=== PATIENT | female | born 1935 | race Caucasian/White ===

== ENCOUNTER 2017-07-09 04:39 | Emergency (ER) | payer MEDICARE, OTHER ==
[2015-01-25 13:18] VITALS: BMI 17.7
[~2017-07-09 04:39] MED LIST: ATROVENT 0.02%2.5 ML UPD; CALCIUM 600+D T1 TA1 PO; COZAAR50 MG PO; ELIQUIS5 MG PO; FISH OIL 1,0001 CA1; LIPITOR10 MG PO; MUCINEX600 MG PO; MULTAQ400 MG PO; OSTEO BI-FLEX1 EAC1 PO; PRESERVISION AR1 CAP PO; PULMICORT0.5 MG/21 UPD; PYRIDOXINE HCL100 MG PO; VIBRAMYCIN 100100 MG PO; VITAMIN B-121000 MCG PO; VITAMIN D3400 UNI1 PO; XOPENEX 0.0.63 MG/3 UPD; XOPENEX HFA15 GM INH
[2017-07-09 05:20] LABS: BASOPHILS 0.1 % (0-2); EOSINOPHILS 0.1 % (0-7); HEMATOCRIT 33.3 % (36.0-48.0); HEMOGLOBIN 10.8 g/dL (12-16); IMMATURE GRANULOCYTES 0.9 % (0-5); LYMPHOCYTES 7.8 % (15-50); MCH 30.4 pg (26.0-34.0); MCHC 32.4 g/dL (31.0-37.0); MCV 93.8 fL (80.0-100.0); MEAN PLATELET VOLUME 8.4 fL (7.4-10.4); MONOCYTES 7.7 % (2-11); NEUTROPHILS 83.4 % (40-80); PLATELET COUNT 365 10x3/uL (130-400); RBC 3.55 10x6/uL (4.00-5.40); RDW 14.1 % (11.5-14.5); WBC 9.8 10x3/uL (4.8-10.8)
[2017-07-09 05:38] LABS: ALBUMIN 2.6 g/dL (3.4-5.0); ALKALINE PHOSPHATASE 61 U/L (46-116); ALT (SGPT) 23 U/L (10-68); BILIRUBIN - TOTAL 0.31 mg/dL (0.2-1.3); CALC OSMOLALITY 279 mosm/kg (275-300); CALCIUM 9.1 mg/dL (8.5-10.1); CARBON DIOXIDE 30.8 mmol/L (21.0-32.0); CHLORIDE - SERUM 103 mmol/L (98-107); CREATININE - SERUM 0.8 mg/dL (0.6-1.3); GLUCOSE 117 mg/dL (74-106); INR 1.25 (0.85-1.17); POTASSIUM - SERUM 4.2 mmol/L (3.5-5.1); PROTEIN - SERUM 6.6 g/dL (6.4-8.2); PROTIME 15.2 SECONDS (11.6-15.0); SODIUM 138 mmol/L (136-145); UREA NITROGEN 22 mg/dL (7-18); eGFR NON AFRICAN AMERICAN 73 mL/min (90-120)
[2017-07-09 05:40] LABS: D-DIMER-QUANTITATIVE 0.5 ug/mLFEU (0.20-0.54)
[2017-07-09 05:50] LABS: CKMB 0.9 U/L (0.0-3.6); CREATINE KINASE 28 UL (21-215); MAGNESIUM - SERUM 2.2 mg/dL (1.8-2.4); PHOSPHOROUS 3.4 mg/dL (2.5-4.9); PRO BNP 331 pg/mL (0-450); TROPONIN-I < 0.017 ng/mL (0.000-0.060)
== END 2017-07-09 07:10 | disposition home or self-care (01) ==
LOC: D.ER 04:39
PROVIDERS: Family Medicine
DX: M79.1 Myalgia (principal); G89.29 Other chronic pain

== ENCOUNTER → 2017-07-14 15:39 | Outpatient (CLI) | payer MEDICARE, OTHER ==
[2015-01-25 13:18] VITALS: BMI 17.7
== END | disposition home or self-care (01) ==
LOC: D.MRI 07-13 14:00
DX: M54.16 Radiculopathy, lumbar region (principal)

== ENCOUNTER 2018-08-28 11:21 | Inpatient (IN) | payer MEDICARE, OTHER ==
[~2018-08-28] VITALS: Ht 167.6 cm; Wt 54.4 kg
[~2018-08-28 11:21] MED LIST changes: -FISH OIL 1,0001 CA1; +FISH OIL 1,0001 CA1 PO
[2018-08-28 12:02] LABS: BASOPHILS 0.2 % (0-2); EOSINOPHILS 0 % (0-7); HEMATOCRIT 30.2 % (36.0-48.0); IMMATURE GRANULOCYTES 0.2 % (0-5); LYMPHOCYTES 6.1 % (15-50); MCH 31.1 pg (26.0-34.0); MCHC 33.1 g/dL (31.0-37.0); MCV 93.8 fL (80.0-100.0); MEAN PLATELET VOLUME 8.8 fL (7.4-10.4); MONOCYTES 8.4 % (2-11); NEUTROPHILS 85.1 % (40-80); RBC 3.22 10x6/uL (4.00-5.40); RDW 15.5 % (11.5-14.5); WBC 5.9 10x3/uL (4.8-10.8)
[2018-08-28 12:08] LABS: PLATELET COUNT 164 10x3/uL (130-400)
[2018-08-28 12:21] LABS: APPEARANCE CLEAR (CLEAR); BILIRUBIN NEGATIVE (NEGATIVE); COLOR YELLOW (YELLOW); GLUCOSE NEGATIVE (NEGATIVE); KETONE SMALL mg/dL (NEGATIVE); NITRITE NEGATIVE (NEGATIVE); PROTEIN NEGATIVE (NEGATIVE); UROBILINOGEN NORMAL (NORMAL)
[2018-08-28 12:23] LABS: BACTERIA FEW /hpf (NONE SEEN); EPITHELIAL CELLS 0-5 /hpf (0-5); RED CELLS - URINE 0-5 /hpf (0-5); WHITE CELLS - URINE 0-5 /hpf (0-5)
[2018-08-28 12:34] LABS: ALBUMIN 2.9 g/dL (3.4-5.0); ALKALINE PHOSPHATASE 44 U/L (46-116); ALT (SGPT) 24 U/L (10-68); BILIRUBIN - TOTAL 0.45 mg/dL (0.2-1.3); CALC OSMOLALITY 278 mosm/kg (275-300); CALCIUM 7.9 mg/dL (8.5-10.1); CHLORIDE - SERUM 104 mmol/L (98-107); CREATININE - SERUM 0.6 mg/dL (0.6-1.3); GLUCOSE 97 mg/dL (74-106); POTASSIUM - SERUM 3.5 mmol/L (3.5-5.1); SODIUM 139 mmol/L (136-145); UREA NITROGEN 15 mg/dL (7-18); eGFR NON AFRICAN AMERICAN > 90 mL/min (90-120)
[2018-08-28 12:45] LABS: CKMB 0.7 U/L (0.0-3.6); CREATINE KINASE 48 UL (21-215); TROPONIN-I 0.016 ng/mL (0.000-0.060)
[2018-08-28 13:24] VITALS: BP 153/75
--- NOTE | 2018-08-28 14:01 | MORECARE ---
CASE MANAGEMENT DISCHARGE SUMMARY PATIENT: RYLEY COX UNIT: [id number] ADM DATE: 08/28/18 AGE: 82 : 35 SEX: F ROOM/BED: D.E14 AUTHOR: YAKELIN MANN PHYSICIAN: REFERRING PHYSICIAN: ART AGUERO MD DATE OF SERVICE: 08/28/18 Discharge Plan Patient Name: RYLEY COX Facility: [facility]:[place] : 1935 Planned Disposition: Home Anticipated Discharge Date: 08/30/18 Discharge Date: Expected LOS: 2 Initial Reviewer: [email or web address] Initial Review Date: 08/28/2018 Generated: 08/28/18 3:01 pm Patient Name: RYLEY COX Page [id number] at 1401 All edits/amendments must be made on the electronic document DICTATION DATE: 08/28/18 1401 DELIVERER PHARMACY: CHARISMA 08/28/18 1401 RPT#: [id number] DC DATE: STATUS: ADM IN [facility] [address] [place] [address] END OF REPORT
--- NOTE | 2018-08-28 14:02 | NUR ---
ROCEPHIN INFUSION COMPLETED @ 1402
--- NOTE | 2018-08-28 14:08 | MORECARE ---
CASE MANAGEMENT DISCHARGE SUMMARY PATIENT: RYLEY COX UNIT: [id number] ADM DATE: 08/28/18 AGE: 82 : 35 SEX: F ROOM/BED: D.E14 AUTHOR: YAKELIN MANN PHYSICIAN: REFERRING PHYSICIAN: ART AGUERO MD DATE OF SERVICE: 08/28/18 Discharge Plan Patient Name: RYLEY COX Facility: [facility]:[place] : 1935 Planned Disposition: Home Anticipated Discharge Date: 08/30/18 Discharge Date: Expected LOS: 2 Initial Reviewer: [email or web address] Initial Review Date: 08/28/2018 Generated: 08/28/18 3:07 pm DCPIA - Discharge Planning Initial Assessment Updated by [email or web address]: Tara Zaragoza on 08/28/18 2:05 pm * Is the patient Alert and Oriented? Yes * How many steps to enter\exit or inside your home? Ramp * PCP Dr. Alcantara * Pharmacy [facility] on [address] * Preadmission Environment Home Alone * ADLs Independent * Equipment Oxygen Power Chair or Electric Scooter Rolling Walker Wheelchair * Other Equipment [employer] - wears O2 @ HS has portable also but doesn't wear it. * List name and contact numbers for known caregivers / representatives who currently or will assist patient after discharge: Steve patel/norma in law - [phone] Yeyo patel / norma in law - [phone] * Verbal permission to speak to the caregivers and representatives has been obtained from the patient. Yes * Community resources currently utilized None * Additional services required to return to the preadmission environment? No * Can the patient safely return to the preadmission environment? Yes * Has this patient been hospitalized within the prior 30 days at any hospital? No Last DP export: 08/28/18 1:01 pm Patient Name: RYLEY COX Page 22885 at 1408 All edits/amendments must be made on the electronic document DICTATION DATE: 08/28/18 1407 SHOP LEAD: CHARISMA 08/28/187 RPT#: [id number] DC DATE: STATUS: ADM IN [facility] [address] [place] [address] END OF REPORT
--- NOTE | 2018-08-28 14:23 | MORECARE ---
CASE MANAGEMENT DISCHARGE SUMMARY PATIENT: RYLEY MCGUIRE UNIT: [id number] ADM DATE: 08/28/18 AGE: 82 : 35 SEX: F ROOM/BED: D.E14 AUTHOR: YAKELIN MANN PHYSICIAN: REFERRING PHYSICIAN: ART AGUERO MD DATE OF SERVICE: 08/28/18 Discharge Plan Patient Name: RYLEY MCGUIRE Facility: [facility]:[place] : 1935 Planned Disposition: Home Anticipated Discharge Date: 08/30/18 Discharge Date: Expected LOS: 2 Initial Reviewer: [email or web address] Initial Review Date: 08/28/2018 Generated: 08/28/18 3:22 pm DCP- Discharge Planning Updated by [email or web address]: Tara Zaragoza on 08/28/18 1:[address] Patient Name: RYLEY MCGUIRE Admission Status: ER Accout number: [id number] Admission Date: 08-28-2018 : 1935 Admission Diagnosis: Attending: ART AGUERO Current LOS: 1 Anticipated DC Date: 08-30-2018 Planned Disposition: Home Primary Insurance: MEDICARE A & B Discharge Planning Comments: CM met with patient to complete initial dc planning assessment. CM educated patient on the CM role and verbal consent given by patient to complete assessment. Patient lives at home alone independently. At discharge patient plans to return home alone and feels this is a safe discharge. CM discussed availability of home health, rehab services, and medical equipment. Patient denied known discharge needs at this time. CM will continue to follow and will assist as needed with dc plans/needs. Bow Tacker: Tara Zaragoza RN, CCM Appended by Tara Zaragoza on 08/28/2018 14:15 GRINDER CHIPPER: Patients [address]: [address] [place] [address] [place]. [address] DCPIA - Discharge Planning Initial Assessment Updated by [email or web address]: Tara Zaragoza on 08/28/18 2:05 pm * Is the patient Alert and Oriented? Yes * How many steps to enter\exit or inside your home? Ramp * PCP Dr. Alcantara * Pharmacy [facility] [address] * Preadmission Environment Home Alone * ADLs Independent * Equipment Oxygen Power Chair or Electric Scooter Rolling Walker Wheelchair * Other Equipment [employer] - wears O2 @ HS has portable also but doesn't wear it. * List name and contact numbers for known caregivers / representatives who currently or will assist patient after discharge: Hunterry Shayla - son/drt in law - [phone] Rafael and Laurie Mcguire - son / t in law - [phone] * Verbal permission to speak to the caregivers and representatives has been obtained from the patient. Yes * Community resources currently utilized None * Additional services required to return to the preadmission environment? No * Can the patient safely return to the preadmission environment? Yes * Has this patient been hospitalized within the prior 30 days at any hospital? No Last DP export: 08/28/18 1:08 pm Patient Name: RYLEY MCGUIRE Page 19525 at 1423 All edits/amendments must be made on the electronic document DICTATION DATE: 08/28/181421 WELL PULLER HEAD: CHARISMA 08/28/181421 RPT#: [id number] DC DATE: STATUS: ADM IN [facility] [address] [place] [address] END OF REPORT
[2018-08-28 14:26] LABS: % SATURATION 4 % (15-55); IRON 9 ug/dl (35-150); TOTAL IRON BIND CAPACITY 188 ug/dl (260-445); UNSAT IRON BIND CAPACITY 179 ug/dl (150-375)
[2018-08-28 14:46] LABS: FERRITIN 206 ng/mL (3-244); PRO BNP 1349 pg/mL (0-450)
[2018-08-28 15:58] VITALS: BP 123/58; BMI 19.4
[2018-08-28 18:35] VITALS: BP 127/58
--- NOTE | 2018-08-28 19:46 | NUR ---
PATIENT RESTING IN BED WITH EYES CLOSED AND NO S/S OF DISTRESS. BED IN LOWEST POSITION AND CALL LIGHT WITHIN REACH. WILL CONTINUE TO MONITOR.
--- NOTE | 2018-08-28 19:52 | NUR ---
PATIENT RESTING IN BED WITH NO S/S OF DISTRESS. REQUESTED EXTRA BLANKET AND WATER. PATIENT DENIES OTHER NEEDS AT THIS TIME. BED IN LOWEST POSITION AND CALL LIGHT WITHIN REACH. ENCOURAGED THE PATIENT TO CALL IF SHE HAS NEEDS. WILL CONTINUE TO MONITOR.
[2018-08-28 20:00] VITALS: BP 110/57
--- NOTE | 2018-08-28 21:31 | NUR ---
PATIENT RESTING IN BED WITH NO S/S OF DISTRESS. ADMINISTERED MEDS PER ORDERS. PATIENT DENIES OTHER NEEDS AT THIS TIME. BED IN LOWEST POSITION AND CALL LIGHT WITHIN REACH. ENCOURAGED THE PATIENT TO CALL IF SHE HAS NEEDS. WILL CONTINUE TO MONITOR.
[2018-08-29] VITALS: BP 115/49
[2018-08-29 04:00] VITALS: BP 117/62
--- NOTE | 2018-08-29 07:30 | NUR ---
PT RESTING IN BED, EYES OPEN. PT UP WITH STANDBY. PT ALERT AND ORIENTED. PT C/O HEADACHE. IV TO LEFT FOREARM, SL. SITE PATENT WITHOUT REDNESS OR SWELLING. FINE CRACKLES ASCULTATED IN RUL AND RML. RLL DIMINISHED. NO S/S OF ACUTE DISTRESS NOTED. PT DENIES ANYTHING FURTHER AT THIS TIME. CALL LIGHT IN REACH. WILL CONTINUE TO MONITOR.
[2018-08-29 07:33] LABS: BASOPHILS 0.2 % (0-2); EOSINOPHILS 0.2 % (0-7); HEMATOCRIT 32.8 % (36.0-48.0); HEMOGLOBIN 10.9 g/dL (12-16); IMMATURE GRANULOCYTES 0.2 % (0-5); LYMPHOCYTES 7.2 % (15-50); MCH 31.2 pg (26.0-34.0); MCHC 33.2 g/dL (31.0-37.0); MEAN PLATELET VOLUME 9.2 fL (7.4-10.4); MONOCYTES 13.3 % (2-11); NEUTROPHILS 78.9 % (40-80); PLATELET COUNT 177 10x3/uL (130-400); RBC 3.49 10x6/uL (4.00-5.40); RDW 15.8 % (11.5-14.5)
[2018-08-29 07:52] LABS: ANION GAP 12.1 mmol/L (8-16); CALCIUM 8.4 mg/dL (8.5-10.1); CARBON DIOXIDE 27.9 mmol/L (21.0-32.0)
[2018-08-29 07:56] LABS: CREATININE - SERUM 0.8 mg/dL (0.6-1.3)
[2018-08-29 08:35] VITALS: BP 117/60
--- NOTE | 2018-08-29 10:11 | NUR ---
ALERT AND ORIENTED X4. RESTING IN BED. AGREE WITH ETHANOL QUALITY LEADER ASSESSMENT. VITALS STABLE. UP WITH STAND BY ASSIST. CRISTHIAN RESUMES PLAN OF CARE AND SAFETY PRECAUTIONS. RECIEVES ELIAUGUSTINAIS. NO SCDs.
[2018-08-29 16:52] VITALS: BP 120/65
--- NOTE | 2018-08-29 18:32 | NUR ---
PT RESTING IN BED, EYES OPEN. NO C/O PAIN. NO S/S OF ACUTE DISTRESS NOTED. CALL LIGHT IN REACH. PT DENIES ANYTHING FURTHER AT THIS TIME. WILL CONTINUE TO MONITOR.
--- NOTE | 2018-08-29 19:30 | NUR ---
PATIENT RESTING IN BED AND DENIES NEEDS AT THIS TIME. NO S/S OF DISTRESS. BED IN LOWEST POSITION AND CALL LIGHT WITHIN REACH. ENCOURAGED THE PATIENT TO CALL IF SHE HAS NEEDS. WILL CONTINUE TO MONITOR.
[2018-08-29 20:00] VITALS: BP 107/59
[2018-08-30 01:00] VITALS: BP 120/64
[2018-08-30 05:00] VITALS: BP 113/59
[2018-08-30 07:22] LABS: BASOPHILS 0.2 % (0-2); EOSINOPHILS 0 % (0-7); HEMATOCRIT 30.8 % (36.0-48.0); HEMOGLOBIN 10.2 g/dL (12-16); IMMATURE GRANULOCYTES 0.3 % (0-5); LYMPHOCYTES 7.3 % (15-50); MCH 30.8 pg (26.0-34.0); MCHC 33.1 g/dL (31.0-37.0); MCV 93.1 fL (80.0-100.0); MEAN PLATELET VOLUME 9.6 fL (7.4-10.4); NEUTROPHILS 82.2 % (40-80); PLATELET COUNT 152 10x3/uL (130-400); RBC 3.31 10x6/uL (4.00-5.40); RDW 15.6 % (11.5-14.5); WBC 6.4 10x3/uL (4.8-10.8)
[2018-08-30 07:38] LABS: ALBUMIN 2.5 g/dL (3.4-5.0); ALKALINE PHOSPHATASE 38 U/L (46-116); ALT (SGPT) 23 U/L (10-68); BILIRUBIN - TOTAL 0.33 mg/dL (0.2-1.3); CALC OSMOLALITY 274 mosm/kg (275-300); CARBON DIOXIDE 28.7 mmol/L (21.0-32.0); CHLORIDE - SERUM 102 mmol/L (98-107); CREATININE - SERUM 0.7 mg/dL (0.6-1.3); GLUCOSE 95 mg/dL (74-106); POTASSIUM - SERUM 3.8 mmol/L (3.5-5.1); PROTEIN - SERUM 5.6 g/dL (6.4-8.2); SODIUM 138 mmol/L (136-145); UREA NITROGEN 11 mg/dL (7-18); eGFR NON AFRICAN AMERICAN 85 mL/min (90-120)
[2018-08-30 07:59] VITALS: BP 117/61
[2018-08-30 08:21] LABS: FOLATE (FOLIC ACID) - SERUM 11.7 ng/mL (>3.0)
[2018-08-30 11:50] VITALS: BP 110/55
[2018-08-30 16:54] VITALS: BP 105/56
--- NOTE | 2018-08-30 19:58 | NUR ---
ASSISTED THE PATIENT TO AND FROM THE RESTROOM AND TO THE SINK FOR HAND AND ORAL HYGIENE. PATIENT DENIES OTHER NEEDS AT THIS TIME. BED IN LOWEST POSITION AND CALL LIGHT WITHIN REACH. ENCOURAGED THE PATIENT TO CALL IF SHE HAS NEEDS. WILL CONTINUE TO MONITOR.
[2018-08-30 20:00] VITALS: BP 98/47
[2018-08-31] VITALS: BP 117/57
[2018-08-31 04:00] VITALS: BP 104/52
[2018-08-31 07:17] LABS: BASOPHILS 0.2 % (0-2); EOSINOPHILS 0.2 % (0-7); HEMATOCRIT 30.2 % (36.0-48.0); IMMATURE GRANULOCYTES 0.2 % (0-5); LYMPHOCYTES 7.2 % (15-50); MCH 30.9 pg (26.0-34.0); MCHC 33.1 g/dL (31.0-37.0); MCV 93.2 fL (80.0-100.0); MEAN PLATELET VOLUME 9.6 fL (7.4-10.4); MONOCYTES 16.1 % (2-11); NEUTROPHILS 76.1 % (40-80); PLATELET COUNT 172 10x3/uL (130-400); RBC 3.24 10x6/uL (4.00-5.40); RDW 15.8 % (11.5-14.5); WBC 5.7 10x3/uL (4.8-10.8)
[2018-08-31 07:25] LABS: ALBUMIN 2.3 g/dL (3.4-5.0); ALKALINE PHOSPHATASE 45 U/L (46-116); ALT (SGPT) 20 U/L (10-68); BILIRUBIN - TOTAL 0.35 mg/dL (0.2-1.3); CALC OSMOLALITY 276 mosm/kg (275-300); CALCIUM 8.3 mg/dL (8.5-10.1); CARBON DIOXIDE 25.9 mmol/L (21.0-32.0); CHLORIDE - SERUM 104 mmol/L (98-107); CREATININE - SERUM 0.7 mg/dL (0.6-1.3); GLUCOSE 93 mg/dL (74-106); POTASSIUM - SERUM 3.7 mmol/L (3.5-5.1); PROTEIN - SERUM 5.6 g/dL (6.4-8.2); SODIUM 139 mmol/L (136-145); UREA NITROGEN 11 mg/dL (7-18); eGFR NON AFRICAN AMERICAN 85 mL/min (90-120)
[2018-08-31 09:27] VITALS: BP 107/55
--- NOTE | 2018-08-31 09:50 | NUR ---
AM MED GIVEN AT THIS TIME. PT UP TO CHAIR, PT IS A LITTLE SOB ON 2L NC. INSTRUCTED PT TO TAKE SLOW DEEP BREATHS. PT A/O X4, LT FA IV SL. PT DENIES ANY NEEDS AT THIS TIME. CALL LIGHT IN REACH, NAD NOTED, WILL CONTINUE TO MONITOR.
--- NOTE | 2018-08-31 10:48 | NUR ---
PT TO CT AT THIS TIME.
[2018-08-31 12:03] VITALS: BP 111/52
--- NOTE | 2018-08-31 17:35 | NUR ---
IVPB IRON HUNG AT THIS TIME. ALSO HELPED PT TO BATHROOM AND UP TO CHAIR. PT DENIES ANY NEEDS AT THIS TIME. CALL LIGHT IN REACH, NAD NOTED.
[2018-08-31 17:43] VITALS: BP 129/79
--- NOTE | 2018-08-31 19:19 | NUR ---
CALLED PHARMACY AND SPOKE WITH TYLER, INFORMED HIM THAT I NEED MOTRIN FOR PT.
[2018-08-31 20:46] VITALS: BP 114/64
--- NOTE | 2018-08-31 20:55 | NUR ---
RESUMING PATIENT CARE. PT IS ALERT LAYING IN BED WITH NO C/O VOICED AT THIS TIME. NO S/S OF ACUTE DISTRESS NOTED. BED IN LOW POSITION WITH CALL LIGHT IN REACH. WILL CONTINUE TO MONITOR PT AND FOLLOW PLAN OF CARE.
[2018-09-01] VITALS (8 sets, daily range): BP systolic 101–131; BP diastolic 50–73; Ht 167.6 cm; Wt 54.4 kg
--- NOTE | 2018-09-01 03:16 | NUR ---
I AGREE WITH RETURNED GOODS REPAIRER ASSESSMENT THIS SHIFT.
[2018-09-01 07:15] LABS: ALBUMIN 2.3 g/dL (3.4-5.0); ANION GAP 8.5 mmol/L (8-16); BILIRUBIN - TOTAL 0.46 mg/dL (0.2-1.3); CARBON DIOXIDE 31.4 mmol/L (21.0-32.0); CREATININE - SERUM 0.8 mg/dL (0.6-1.3); POTASSIUM - SERUM 3.9 mmol/L (3.5-5.1); PROTEIN - SERUM 5.6 g/dL (6.4-8.2)
--- NOTE | 2018-09-01 07:20 | NUR ---
ASSESSMENT COMPLETE. SL TO L UPPER ARM. O2 2.5L NC IN USE. SOB ON EXERTION. DENIES ANY NEEDS AT THIS TIME.
[2018-09-01 07:35] LABS: BASOPHILS 0.2 % (0-2); EOSINOPHILS 0.2 % (0-7); HEMATOCRIT 29.2 % (36.0-48.0); HEMOGLOBIN 9.7 g/dL (12-16); IMMATURE GRANULOCYTES 0.4 % (0-5); LYMPHOCYTES 9.1 % (15-50); MCH 30.6 pg (26.0-34.0); MCHC 33.2 g/dL (31.0-37.0); MCV 92.1 fL (80.0-100.0); MEAN PLATELET VOLUME 9.6 fL (7.4-10.4); MONOCYTES 21.2 % (2-11); NEUTROPHILS 68.9 % (40-80); PLATELET COUNT 176 10x3/uL (130-400); RBC 3.17 10x6/uL (4.00-5.40); RDW 15.5 % (11.5-14.5); WBC 5.1 10x3/uL (4.8-10.8)
--- NOTE | 2018-09-01 08:39 | MORECARE ---
CASE MANAGEMENT DISCHARGE SUMMARY PATIENT: RYLEY MCGUIRE UNIT: [id number] ADM DATE: 08/28/18 AGE: 82 : 35 SEX: F ROOM/BED: D.1207 AUTHOR: MACKENZIE,DOC PHYSICIAN: REFERRING PHYSICIAN: ART AGUERO MD DATE OF SERVICE: 09/01/18 Discharge Plan Patient Name: RYLEY MCGUIRE Facility: [facility]:[place] : 1935 Planned Disposition: Home Anticipated Discharge Date: 08/30/18 Discharge Date: Expected LOS: 2 Initial Reviewer: [email or web address] Initial Review Date: 08/28/2018 Generated: 09/01/18 9:39 am DCP- Discharge Planning Updated by [email or web address]: Tara Zaragoza on 08/28/18 1:[address] Patient Name: RYLEY MCGUIRE Admission Status: ER Accout number: [id number] Admission Date: 08-28-2018 : 1935 Admission Diagnosis: Attending: ART AGUERO Current LOS: 1 Anticipated DC Date: 08-30-2018 Planned Disposition: Home Primary Insurance: MEDICARE A & B Discharge Planning Comments: CM met with patient to complete initial dc planning assessment. CM educated patient on the CM role and verbal consent given by patient to complete assessment. Patient lives at home alone independently. At discharge patient plans to return home alone and feels this is a safe discharge. CM discussed availability of home health, rehab services, and medical equipment. Patient denied known discharge needs at this time. CM will continue to follow and will assist as needed with dc plans/needs. Government Auditor: Tara Zaragoza RN, CCM Appended by Tara Zaragoza on 08/28/2018 14:15 FORESTRY ENGINEER: Patients physical [address]: [address] [place] [address] [place]. [address] DCPIA - Discharge Planning Initial Assessment Updated by [email or web address]: Tara Zaragoza on 08/28/18 2:05 pm * Is the patient Alert and Oriented? Yes * How many steps to enter\exit or inside your home? Ramp * PCP Dr. Alcantara * Pharmacy [facility] [address] * Preadmission Environment Home Alone * ADLs Independent * Equipment Oxygen Power Chair or Electric Scooter Rolling Walker Wheelchair * Other Equipment [employer] - wears O2 @ HS has portable also but doesn't wear it. * List name and contact numbers for known caregivers / representatives who currently or will assist patient after discharge: Donny bernard Gunjan Shayla - son/drt in law - [phone] Rafael and Lauriealon Mcguire - son / t in law - [phone] * Verbal permission to speak to the caregivers and representatives has been obtained from the patient. Yes * Community resources currently utilized None * Additional services required to return to the preadmission environment? No * Can the patient safely return to the preadmission environment? Yes * Has this patient been hospitalized within the prior 30 days at any hospital? No Last DP export: 08/28/18 1:23 pm Patient Name: RYLEY MCGUIRE Page 46425 at 0839 All edits/amendments must be made on the electronic document DICTATION DATE: 09/01/18838 CHEF DE CUISINE: CHARISMA 09/01/18838 RPT#: [id number] DC DATE: STATUS: ADM IN [facility] [address] [place] [address] END OF REPORT
--- NOTE | 2018-09-01 12:31 | NUR ---
SITTING UP IN CHAIR. DENIES ANY NEEDS AT THIS TIME.
--- NOTE | 2018-09-01 14:30 | NUR ---
SPOKE WITH KIERSTEN IN IR. IR WILL NOT BE ABLE TO DO THORACENTESIS TODAY. INSTRUCTED TO ASK DR JARVIS. SPOKE WITH DR JARVIS ABOUT IR NOT BEING ABLE TO DO THORACENTESIS. OK FOR PATIENT TO EAT AND DRINK.
--- NOTE | 2018-09-01 16:20 | NUR ---
PATIENT REPORTS SEEING BRIGHT RED BLOOD WHEN WIPING AFTER BOWEL MOVEMENT. DR CARLTON PAGED THROUGH ANSWERING SERVICE.
--- NOTE | 2018-09-01 18:10 | NUR ---
DR. JARVIS HERE. CONSENT SIGNED FOR THORACENTISIS AT BEDSIDE UNDER LOCAL ONLY. US TECH HERE AND ALSO RT. O2 SAT MONITOR ON. PT DRAPED WITH STERILE DRAPE. DR. JARVIS USED LIDOCAINE FOR LOCAL ANESTHESIA. 450 CC OF CLEAR TEA COLOR DRAINED FROM POSTERIOR CHEST. PT JEFF WELL. STAT PORTABLE CHEST XRAY ORDERED. 3 TUBES OF FLUID COLLECTION FOR LAB.
--- NOTE | 2018-09-01 19:00 | NUR ---
THE PAIENT WAS LYING IN BED AND TALKING TO HER FAMILY WHEN STAFF ENTERED HER ROOM. BED IS IN THE LOW POSITION WITH SIDERAILS X2 AND CALL LIGHT WITHIN REACH. THE PATIENT WAS EDUCATED ON THE USE OF A CALL LIGHT AND DEMONSTRATES UNDERSTANDING VIA TEACHABCK METHOD. THE PATIENT APPEARS COMFORTABLE WITH NO QUESTIONS OR CONCERNS AT THIS TIME.
[2018-09-01 19:47] LABS: PROTEIN - BODY FLUID 2.5 G/DL
--- NOTE | 2018-09-02 03:24 | NUR ---
THE PATIENT APPEARS TO BE SLEEPING COMFORTABLY. BED IN TH ELOW POSITION WITH SIDERAILS X2 AND CALL LIGHT WITHIN REACH.
[2018-09-02 04:30] VITALS: BP 106/59
--- NOTE | 2018-09-02 07:28 | NUR ---
PT SITTING UP IN BED. CALL LIGHT IN REACH. BED IN LOW. PT RECIEVING BREATHING TX AT THIS TIME. DENIES NEEDS OR PAIN. WILL CONTINUE TO MONITOR.
[2018-09-02 07:39] VITALS: BP 118/52
[2018-09-02 08:11] LABS: ALBUMIN 2.2 g/dL (3.4-5.0); ANION GAP 13.2 mmol/L (8-16); BILIRUBIN - TOTAL 0.5 mg/dL (0.2-1.3); CARBON DIOXIDE 25.8 mmol/L (21.0-32.0); CREATININE - SERUM 0.8 mg/dL (0.6-1.3); PROTEIN - SERUM 5.8 g/dL (6.4-8.2)
[2018-09-02 08:49] LABS: BASOPHILS 0.2 % (0-2); EOSINOPHILS 0.3 % (0-7); HEMATOCRIT 29.6 % (36.0-48.0); HEMOGLOBIN 9.8 g/dL (12-16); IMMATURE GRANULOCYTES 0.2 % (0-5); LYMPHOCYTES 9.9 % (15-50); MCH 30.6 pg (26.0-34.0); MCHC 33.1 g/dL (31.0-37.0); MCV 92.5 fL (80.0-100.0); MEAN PLATELET VOLUME 9.4 fL (7.4-10.4); MONOCYTES 19.4 % (2-11); PLATELET COUNT 173 10x3/uL (130-400); RDW 15.5 % (11.5-14.5); WBC 5.9 10x3/uL (4.8-10.8)
--- NOTE | 2018-09-02 10:20 | NUR ---
CALLED PHARMACY AND SPOKE WITH SETH ABOUT ONE TIME DOSE OF LASIX NOT BEING IN PYXIS. SETH STATED SHE WOULD BRING IT RIGHT DOWN. WILL GIVE DOSE SOON MED IS HERE. WILL CONTINUE TO MONITOR.
--- NOTE | 2018-09-02 10:30 | NUR ---
DR JARVIS GAVE VERBAL ORDER TO KEEP PATIENT NPO STARTING NOW, FOR POSSIBLE BRONC TODAY. NURSE ANNIE NOTIFIED
[2018-09-02 11:22] VITALS: BP 119/64
--- NOTE | 2018-09-02 13:36 | NUR ---
Nurtition follow-up: Diet: Regular with po intake 75-100% of meals Pt is now NPO for possible Broch today Labs reviewed Wt: 119# RDN following.
--- NOTE | 2018-09-02 13:49 | NUR ---
PT LYING IN BED. CALL LIGHT IN REACH. DENIES NEEDS. NPO FOR PROCEDURE. WILL CONTINUE TO MONITOR.
--- NOTE | 2018-09-02 14:00 | NUR ---
CALLED PHARMACY [facility] ANSWERED AND TOLD HER THAT THIS PT ROCEPHINS NOT ON UNIT. SHE SAID SHE WOULD BRING IT.
[2018-09-02 15:21] VITALS: BP 124/57
--- NOTE | 2018-09-02 15:28 | NUR ---
RESPIRATORY CAME AND RECIEVED PT FOR BRONCHOSCOPY BY BED. CONSENTS SIGNED. NO QUESTIONS ASKED.
--- NOTE | 2018-09-02 16:56 | NUR ---
PT IN ROOM. PT DENIES NEEDS OR PAIN. BED IN LOW. SIDE RAILS X2. RESP EVEN AND UNLABORED. RECIEVED REPORT FROM PROCEDURE AND DR. JARVIS. WILL CONTINUE TO MONITOR.
--- NOTE | 2018-09-02 19:20 | NUR ---
PT RESTING IN BED. PT ALLOWED TO EAT AT 1930 WILL HEAT UP DINNER TRAY. PT HAS NO S/S OF DISTRESS. AAO AND DENIES ANY NEEDS. NAME AND DATE PLACED ON BOARD. BED LOW AND CALL LIGHT IN REACH. PT WILL CALL FOR ASSIST WHEN NEEDED. WILL CPOC
[2018-09-02 20:00] VITALS: BP 117/71
[2018-09-02 20:07] LABS: EOS BF 12 %; MACROPHAGES BF 62 %; MESOTHELIALS BF 2 %; NEUT - BF 14 %
[2018-09-02 21:24] LABS: EOS BF 3 %; MACROPHAGES BF 28 %; MESOTHELIALS BF 2 %; NEUT - BF 27 %
[2018-09-03 01:30] VITALS: BP 148/63
--- NOTE | 2018-09-03 03:53 | NUR ---
ASSISTED PATIENT TO BATHROOM USING ONE PERSON ASSIST. PATIENT HAD CLEAR YELLOW URINE. BACK TO BED AND REPOSITIONED FOR COMFORT. CALL LIGHT IN REACH.
[2018-09-03 04:30] VITALS: BP 119/60
[2018-09-03 06:43] LABS: BASOPHILS 0.1 % (0-2); EOSINOPHILS 0.1 % (0-7); IMMATURE GRANULOCYTES 0.4 % (0-5); LYMPHOCYTES 4.9 % (15-50); MCH 30.5 pg (26.0-34.0); MCHC 33.3 g/dL (31.0-37.0); MCV 91.5 fL (80.0-100.0); MEAN PLATELET VOLUME 9.6 fL (7.4-10.4); MONOCYTES 14.9 % (2-11); NEUTROPHILS 79.6 % (40-80); PLATELET COUNT 205 10x3/uL (130-400); RBC 3.28 10x6/uL (4.00-5.40); RDW 15.1 % (11.5-14.5)
[2018-09-03 06:44] LABS: WBC 10.7 10x3/uL (4.8-10.8)
[2018-09-03 07:09] LABS: ALBUMIN 2.1 g/dL (3.4-5.0); ALKALINE PHOSPHATASE 50 U/L (46-116); BILIRUBIN - TOTAL 0.59 mg/dL (0.2-1.3); CALCIUM 8.2 mg/dL (8.5-10.1); CARBON DIOXIDE 29.4 mmol/L (21.0-32.0); CHLORIDE - SERUM 100 mmol/L (98-107); CREATININE - SERUM 0.7 mg/dL (0.6-1.3); POTASSIUM - SERUM 3.7 mmol/L (3.5-5.1); SODIUM 136 mmol/L (136-145); UREA NITROGEN 9 mg/dL (7-18); eGFR NON AFRICAN AMERICAN 85 mL/min (90-120)
[2018-09-03 07:11] LABS: ALT (SGPT) 38 U/L (10-68); CALC OSMOLALITY 273 mosm/kg (275-300); GLUCOSE 147 mg/dL (74-106)
[2018-09-03 07:24] VITALS: BP 127/61
--- NOTE | 2018-09-03 08:42 | NUR ---
PT LYING IN BED, STATED STILL VERY DROWSY AND INQUIRED ON HOW LONG IT TAKES FOR ANESTHESIA TO WEAR OFF. ANSWERED ALL OF PT'S QUESTIONS AND SET HER UP FOR BREAKFAST. NO S/S OF DISTRESS, BED IN LOW POSITION, CL IN REACH. CONTINUE WITH PLAN OF CARE
--- NOTE | 2018-09-03 08:44 | NUR ---
SITTING UP IN RECLINER. DENIES ANY NEEDS AT THIS TIME.
[2018-09-03 11:42] VITALS: BP 118/62
[2018-09-03 15:20] VITALS: BP 110/56
[2018-09-03 18:07] LABS: ACID FAST SMEAR Negative (()); AFB SPECIMEN PROCESSING Not Indicated (())
--- NOTE | 2018-09-03 19:22 | NUR ---
ASSISTED PATIENT TO AND FROM RESTROOM. PATIENT DENIES NEEDS AT THIS TIME. BED IN LOWEST POSITION AND CALL LIGHT WITHIN REACH. ENCOURAGED THE PATIENT TO CALL IF SHE HAS NEEDS. BED IN LOWEST POSITION AND CALL LIGHT WITHIN REACH. WILL CONTINUE TO MONITOR.
[2018-09-03 20:00] VITALS: BP 129/64
[2018-09-04 00:52] VITALS: BP 111/61
[2018-09-04 04:00] VITALS: BP 115/47
--- NOTE | 2018-09-04 07:15 | NUR ---
ALEKSEY ADMITTED FOR PNEUMONIA. RESTING IN BED WITH NO NEEDS VOICED AT THIS TIME, DYSPNEA REPORTED WITH EXERTION, 02 2L NC. CL IN REACH
[2018-09-04 07:27] LABS: BASOPHILS 0 % (0-2); EOSINOPHILS 0 % (0-7); HEMATOCRIT 32.3 % (36.0-48.0); HEMOGLOBIN 10.8 g/dL (12-16); IMMATURE GRANULOCYTES 0.3 % (0-5); LYMPHOCYTES 3.1 % (15-50); MCH 30.6 pg (26.0-34.0); MCHC 33.4 g/dL (31.0-37.0); MCV 91.5 fL (80.0-100.0); MEAN PLATELET VOLUME 9.3 fL (7.4-10.4); MONOCYTES 2.5 % (2-11); NEUTROPHILS 94.1 % (40-80); RBC 3.53 10x6/uL (4.00-5.40)
[2018-09-04 07:36] LABS: ANION GAP 14.1 mmol/L (8-16); CALCIUM 8.4 mg/dL (8.5-10.1); CARBON DIOXIDE 28.7 mmol/L (21.0-32.0); POTASSIUM - SERUM 3.8 mmol/L (3.5-5.1)
[2018-09-04 07:39] LABS: CREATININE - SERUM 0.9 mg/dL (0.6-1.3); PLATELET COUNT 248 10x3/uL (130-400)
[2018-09-04 08:00] VITALS: BP 133/69
[2018-09-04 18:06] LABS: ACID FAST SMEAR Negative (()); AFB SPECIMEN PROCESSING Concentration (())
[2018-09-04 18:06] LABS: ACID FAST SMEAR Negative (()); AFB SPECIMEN PROCESSING Concentration (())
[2018-09-04 18:51] VITALS: BP 122/53
--- NOTE | 2018-09-04 19:40 | NUR ---
PATIENT SITTING UP IN THE CHAIR WITH NO S/S OF DISTRESS. PATIENT DENIES NEEDS AT THIS TIME. BED IN LOWEST POSITION AND CALL LIGHT WITHIN REACH. ENCOURAGED THE PATIENT TO CALL IF SHE HAS NEEDS. WILL CONTINUE TO MONITOR.
[2018-09-04 20:01] VITALS: BP 109/57
--- NOTE | 2018-09-04 20:12 | NUR ---
PATIENT SITTING UP IN CHAIR. ADMINISTERED MEDS PER ORDERS. PATIENT DENIES NEEDS AT THIS TIME. WILL CONTINUE TO MONITOR.
--- NOTE | 2018-09-04 21:35 | NUR ---
ASSISTED PATIENT TO AND FROM RESTROOM AND TO THE SINK FOR ORAL AND HAND HYGIENE. PATIENT REQUESTED MOTRIN FOR HEAD AND NECK PAIN. PATIENT DENIES OTHER NEEDS AT THIS TIME. PATIENT REQUESTED TO SLEEP IN CHAIR. ENCOURAGED THE PATIENT TO CALL IF SHE HAS FURTHER NEEDS. WILL CONTINUE TO MONITOR.
[2018-09-05 01:02] VITALS: BP 117/55
[2018-09-05 04:00] VITALS: BP 120/58
[2018-09-05 07:54] VITALS: BP 118/59
[2018-09-05 08:03] LABS: BASOPHILS 0.1 % (0-2); EOSINOPHILS 0 % (0-7); HEMATOCRIT 31.2 % (36.0-48.0); HEMOGLOBIN 10.4 g/dL (12-16); IMMATURE GRANULOCYTES 0.4 % (0-5); LYMPHOCYTES 2.8 % (15-50); MCH 30.7 pg (26.0-34.0); MCHC 33.3 g/dL (31.0-37.0); MEAN PLATELET VOLUME 9.6 fL (7.4-10.4); MONOCYTES 3.8 % (2-11); NEUTROPHILS 92.9 % (40-80); RBC 3.39 10x6/uL (4.00-5.40); RDW 15.1 % (11.5-14.5)
[2018-09-05 08:13] LABS: PLATELET COUNT 363 10x3/uL (130-400); WBC 15.7 10x3/uL (4.8-10.8)
[2018-09-05 08:19] LABS: ANION GAP 9.6 mmol/L (8-16); CALCIUM 8.1 mg/dL (8.5-10.1); CARBON DIOXIDE 33.8 mmol/L (21.0-32.0); CREATININE - SERUM 1.1 mg/dL (0.6-1.3); MAGNESIUM - SERUM 2.2 mg/dL (1.8-2.4); POTASSIUM - SERUM 3.4 mmol/L (3.5-5.1)
--- NOTE | 2018-09-05 09:13 | NUR ---
AM ROUNDS COMPLETED. INTRODUCED MYSELF TO PT PRIMARY RN FOR TODAYS SHIFT. PT IS A&O SITTING UP IN BED RESTING QUIETLY. SHIFT ASSESSMENT COMPLETED. PT STATES SHE IS FEELING BETTER OVERALL BUT STILL SOB UPON EXERTION AND FEELING WEAK. MORNING MEDICATIONS GIVEN AND PT SWALLOWED WITHOUT ANY DIFFICULTIES. PT WANTING A SHOWER TODAY I DISCUSSED WITH VIDAL LOYA AND WE WILL ASSIST HER. PT VOICED THANKS. NO FURTHER NEEDS AT THIS TIME. CL IN REACH, BED IN LOWEST, SIDE RAILS X2 AND ANTONETTE PAD IN PLACE. WILL CTM.
--- NOTE | 2018-09-05 10:03 | NUR ---
PT UP TO BEDSIDE COMMODE URINATING WITH ANY ISSUES NOTED. PT STATES SHE IS FEELING ALRIGHT. DENIES ANY CURRENT PAIN OR NEEDS. CL IN REACH, WILL CTM.
--- NOTE | 2018-09-05 10:54 | CN ---
PATIENT NAME:RYLEY MCGUIRE MEDICAL RECORD: [id number] : 35 LOCATION:D.M3 D.1207 ADMIT DATE: 08/28/18 ACCOUNT: [id number] CONSULTING PHYSICIAN: SESAR COTA MD REFERRING PHYSICIAN: ART AGUERO MD DATE OF CONSULTATION: 09/04/2018 DIAGNOSES: 1. Pneumonia. 2. Status post thoracentesis for pleural effusion. 3. History of atrial fibrillation. 4. Shortness of breath and dyspnea on exertion. HISTORY: Mrs. Mcguire presents with shortness of breath and dyspnea on exertion. She was found to be with a bronchitis that progressed to a pneumonia as well as a pleural effusion. She has undergone thoracentesis. We were asked to comment from a cardiac standpoint. She is on Multaq for the atrial fibrillation as well as Eliquis. She has maintained sinus rhythm. Echocardiogram reveals normal ejection fraction, normal valvular structures, and no significant pulmonary hypertension. She has had no signs or symptoms of ischemic heart disease and has no ST-T abnormalities on EKG. PHYSICAL EXAMINATION: GENERAL APPEARANCE: Well-nourished, well-developed, appears stated age. Level of distress, comfortable. PSYCHIATRIC: Mental status, alert, normal affect. Orientation, oriented to time, place and person. EYES: Lids and conjunctiva, noninjected. No discharge, no pallor. ENT: Lips, teeth, gums, normal dentition. Oropharynx, no cyanosis, no pallor. NECK: Carotid arteries, bilateral normal upstroke, no bruits, no thrills. JUGULAR VEINS: No jugular venous pressure or distention. CERVICAL LYMPH NODES: Nontender, nonenlarged. THYROID: Not enlarged. Nontender. No nodules. LUNGS: Respiratory effort, unlabored. CHEST: Normal curvature. No thoracic deformity. No chest wall tenderness. Percussion, resonant. Auscultation, clear. No wheezes, no rales, no rhonchi. CARDIOVASCULAR: Precordial exam, nondisplaced. No heaves or pericardial thrills. Rate and rhythm, regular. Heart sounds, normal S1, normal S2. No S3, no gallop, no rub. Systolic murmur, not heard. Diastolic murmur, not heard. EXTREMITIES: No cyanosis, no edema. Peripheral pulses, full and equal in all extremities, except as noted. No bruits appreciated. ABDOMEN: Soft, nondistended. Normal aorta. No bruit. Nontender. No masses. Liver, nontender, no hepatomegaly. Spleen, nontender, no splenomegaly. MUSCULOSKELETAL: No joint tenderness. No joint swelling. No erythema. NEUROLOGICAL: Normal gait, normal strength, normal tone. SKIN: Warm and dry. OVERALL IMPRESSION: Symptomatology is noncardiac. She has maintained sinus rhythm. She does not have congestive heart failure. Normal ejection fraction. Normal valvular structures. No other cardiac workup or treatment is necessary. TRANSINT:[id number] Voice Confirmation ID: [id number] DOCUMENT ID: [id number] CONSULT REPORT [id number] RYLEY MCGUIRE, SESAR LI at 1054 CC: [id number] DICTATION DATE: 09/04/18 1255 IC ENGINEER: 09/04/18 1353 ADM IN [facility] [address] [place] [id number]
--- NOTE | 2018-09-05 10:54 | EC ---
PATIENT:RYLEY COX DATE OF SERVICE: 08/28/18 SEX: F MEDICAL RECORD: [id number] DATE OF : [birth year] LOCATION:D.M3 D.120 AGE OF PATIENT: 82 ADMISSION DATE: 08/28/18 REFERRING PHYSICIAN: INTERPRETING PHYSICIAN: SESAR ISAACS MD ECHOCARDIOGRAM REPORT ECHO CHARGES 4 ECHO COMPLETE Date: 09/03/18 CLINICAL DIAGNOSIS: CHF ECHOCARDIOGRAPHIC MEASUREMENTS (adult normal given) AC root (d.<3.7cm) 3.1 cm LV Septum d (<1.2 cm> 0.7 cm Valve Excursion 1.3 cm LV Septum (systole) 1.0 cm Left Atria (s.<4.0cm> 3.1 cm LVPW d(<1.2cm) 1.0 cm RV (d.<2.3cm) 2.4 cm LVPW (sytole) 1.4 cm LV diastole(<5.6CM) 4.3 cm MV E-F(>70mm/sec) cm LV systole 3.1 cm LVOT Diameter 1.5 cm MV exc.(>10mm) cm Est.ejection fraction (50-75%) % DOPPLER: LVIT cm/sec A 83 cm/sec E 96 cm/sec LA cm/sec RVSP 32.7 mmHg LVOT 126 cm/sec AOP1/2T m/s Asc. Ao 188 cm/sec RVOT 53 cm/sec RA cm/sec PA 74 cm/sec AV Gradient Peak 14.2 mmHg AV Mean 7.2 mmHg AV Area 1.1 cm MV Gradient Peak 4.5 mmHg MV Mean 2.2 mmHg MV Area cm COMMENTS: Manganese Heater: Fadi CAMPMACIE SYEDA Bar Supervisor: 1 Dr. Isaacs TAPE# PACS Pericardial Effusion N DATE OF SERVICE: 09/03/2018 FINDINGS: 1. Left ventricular chamber size is within normal limits. Left ventricular systolic function is normal. Overall ejection fraction is estimated at 60%. 2. Left atrium is within normal limits. Right atrium and right ventricular chamber sizes are mildly dilated. 3. Valvular structures have normal structure and motion. 4. Doppler interrogation reveals mild tricuspid regurgitation. No other valvular insufficiency or stenosis. Pulmonary systolic pressure is normal, ECHOCARDIOGRAM REPORT [id number] RYLEY COX estimated at 33 mmHg. 5. No evidence of pericardial effusion or left ventricular thrombus. TRANSINT:[id number] Voice Confirmation ID: [id number] DOCUMENT ID: [id number] SESAR ISAACS MD at 1054 CC: [id number] DICTATION DATE: 09/04/18 1145 SPONGE BUFFER: 09/04/18 1203 ADM IN [place] [id number] [place] [address]
[2018-09-05 11:17] VITALS: BP 107/53
--- NOTE | 2018-09-05 11:21 | NUR ---
Rehab Prescreening Consult recieved and the chart has been reviewed. She is a good ARU candidate, but has not had therapy yet. Rehab will visit with the patient and inform her of the required therapy and the rehab program. Karen Hester RN Clinical Liaison, Rehab
[2018-09-05] MEDS ORDERED: OMNICEF300 MG PO (13:51)
[2018-09-05] MEDS ORDERED: ZITHROMAX500 MG PO (13:51)
[2018-09-05] MEDS ORDERED: STERAPRED DS 1010 MG PO (13:52)
[2018-09-05] MEDS ORDERED: MIRALAX17 GM PO (13:52)
[2018-09-05] MEDS ORDERED: PROTONIX40 MG PO (13:52)
[2018-09-05] MEDS ORDERED: FLUTICASONE PRO16 GM NASAL (13:53)
--- NOTE | 2018-09-05 13:54 | NUR ---
PT WANTING TO GET INTO SHOWER. SHALINI DRAKE AT BEDSIDE ASSISTED AND WRAPPED HER PIV SITE. PT GETTING IN NOW AND HAS ALL SUPPLIES NEEDED. DENIES ANY ASSISTANCE. SHOWER CHAIR IN USE. PT HAS ALSO BEEN ACCEPTED TO INPATIENT REHAB AND IS HAPPY TO HEAR THIS. WILL BEGIN DISCHARGE WORKUP. NO CURRENT NEEDS.
--- NOTE | 2018-09-05 14:12 | NUR ---
Nutrition Follow Up: Chart reviewed Diet: Regular PO Intake: 69% meal avg BM: 09/05/18 Labs reviewed Meds noted including Lasix, Solu Medrol Rec continue current diet. RD following.
[2018-09-05 14:16] LABS: FUNGUS STAIN Final report (())
[2018-09-05 14:16] LABS: FUNGUS STAIN Final report (())
--- NOTE | 2018-09-05 14:36 | MORECARE ---
CASE MANAGEMENT DISCHARGE SUMMARY PATIENT: RYLEY COX UNIT: [id number] ADM DATE: 08/28/18 AGE: 82 : 35 SEX: F ROOM/BED: D.1207 AUTHOR: MACKENZIE,DOC PHYSICIAN: REFERRING PHYSICIAN: ART AGUERO MD DATE OF SERVICE: 09/05/18 Discharge Plan Patient Name: RYLEY COX Facility: [facility]:[place] : 1935 Planned Disposition: Home Anticipated Discharge Date: 08/30/18 Discharge Date: Expected LOS: 2 Initial Reviewer: [email or web address] Initial Review Date: 08/28/2018 Generated: 09/05/18 3:36 pm Comments DCP- Discharge Planning Updated by [email or web address]: Kaya Bradley on 09/05/18 1:[address] CM informed by Karen in rehab that patient is in agreement with discharge to IRF and has been accepted. CM met with patient about discharge planning. Patient verbalized satisfaction with discharge plan. CM explained and served DC IMM. Cm will continue to follow and assist as needed with discharge planning / needs. DCP- Discharge Planning Updated by [email or web address]: Tara Zaragoza on 08/28/18 12:[address] Patient Name: RYLEY COX Admission Status: ER Accout number: [id number] Admission Date: 08-28-2018 : 1935 Admission Diagnosis: Attending: ART AGUERO Current LOS: 1 Anticipated DC Date: 08-30-2018 Planned Disposition: Home Primary Insurance: MEDICARE A & B Discharge Planning Comments: CM met with patient to complete initial dc planning assessment. CM educated patient on the CM role and verbal consent given by patient to complete assessment. Patient lives at home alone independently. At discharge patient plans to return home alone and feels this is a safe discharge. CM discussed availability of home health, rehab services, and medical equipment. Patient denied known discharge needs at this time. CM will continue to follow and will assist as needed with dc plans/needs. Manager Target: Tara Zaragoza RN, CCM Appended by Tara Zaragoza on 08/28/2018 14:15 CROSSCUTTER: Patients physical address: [address] [place] [address]. [address] DCPIA - Discharge Planning Initial Assessment Updated by [email or web address]: Tara Zaragoza on 08/28/18 2:05 pm * Is the patient Alert and Oriented? Yes * How many steps to enter\exit or inside your home? Ramp * PCP Dr. Alcantara * [facility] [address] * Preadmission Environment Home Alone * ADLs Independent * Equipment Oxygen Power Chair or Electric Scooter Rolling Walker Wheelchair * Other Equipment [employer] - wears O2 @ HS has portable also but doesn't wear it. * List name and contact numbers for known caregivers / representatives who currently or will assist patient after discharge: Steve patel/norma in law - [phone] Rafael and Laurie patel / norma in law - [phone] * Verbal permission to speak to the caregivers and representatives has been obtained from the patient. Yes * Community resources currently utilized None * Additional services required to return to the preadmission environment? No * Can the patient safely return to the preadmission environment? Yes * Has this patient been hospitalized within the prior 30 days at any hospital? No Coverage Notice Reviewer: [id number] Nelson Bradley Notice Issued Date-Time: 09/05/2018 14:32 Notice Type: IM Discharge Notice Notice Delivered To: Patient Relationship to Patient: Self Casting Tester Name: Delivery Method: HAND - Hand Delivered Breann Days: Prior Verbal Notification: Recipient Understood Notice: Yes Recipient Signature: Yes Med Rec Note Co-signed by Attending: Coverage Notice Comment: Last DP export: 09/01/18 6:39 am Patient Name: RYLEY COX Page [id number] at 1436 All edits/amendments must be made on the electronic document DICTATION DATE: 09/05/18 1435 QUALITY CONTROL TECHNICIAN: CHARISMA 09/05/18 1435 RPT#: [id number] DC DATE: STATUS: ADM IN [facility] [address] [place] [address] END OF REPORT
--- NOTE | 2018-09-05 18:03 | NUR ---
D/C L.UPPER ARM PIV WITH CATHETER TIP FULLY INTACT. DISCHARGE TEACHING PROVIDED AND PAPERS SIGNED. PT VERBALIZED UNDERSTANDING AND DENIES ANY QUESTIONS OR CONCERNS. CALLED REPORT TO ANITA IN REHAB. PT WILL BE GOING TO ROOM 1114. NO FURTHER NEEDS. WILL COLLECT ALL BELONGINGS AND TRANSFER PT THERE.
--- NOTE | 2018-09-05 19:03 | MORECARE ---
CASE MANAGEMENT DISCHARGE SUMMARY PATIENT: RYLEY MCGUIRE UNIT: [id number] ADM DATE: 08/28/18 AGE: 82 : 35 SEX: F ROOM/BED: D.1207 AUTHOR: MACKENZIE,DOC PHYSICIAN: REFERRING PHYSICIAN: ART AGUERO MD DATE OF SERVICE: 09/05/18 Discharge Plan Patient Name: RYLEY MCGUIRE Facility: [facility]:[place] : 1935 Planned Disposition: Home Anticipated Discharge Date: 08/30/18 Discharge Date: 09/05/2018 Expected LOS: 2 Initial Reviewer: [id number] Initial Review Date: 08/28/2018 Generated: 09/05/18 8:03 pm Comments DCP- Discharge Planning Updated by [id number]: Kaya Bradley on 09/05/18 1:[address] CM informed by Karen in rehab that patient is in agreement with discharge to IRF and has been accepted. CM met with patient about discharge planning. Patient verbalized satisfaction with discharge plan. CM explained and served DC IMM. Cm will continue to follow and assist as needed with discharge planning / needs. DCP- Discharge Planning Updated by [id number]: Tara Zaragoza on 08/28/18 12:[address] Patient Name: RYLEY MCGUIRE Admission Status: ER Accout number: [id number] Admission Date: 08-28-2018 : 1935 Admission Diagnosis: Attending: ART AGUERO Current LOS: 1 Anticipated DC Date: 08-30-2018 Planned Disposition: Home Primary Insurance: MEDICARE A & B Discharge Planning Comments: CM met with patient to complete initial dc planning assessment. CM educated patient on the CM role and verbal consent given by patient to complete assessment. Patient lives at home alone independently. At discharge patient plans to return home alone and feels this is a safe discharge. CM discussed availability of home health, rehab services, and medical equipment. Patient denied known discharge needs at this time. CM will continue to follow and will assist as needed with dc plans/needs. Central Office Maintainer: Tara Zaragoza RN, CCM Appended by Tara Zaragoza on 08/28/2018 14:15 PUMPER HELPER: Patients physical address: [address] [place] [address]. [address] DCPIA - Discharge Planning Initial Assessment Updated by [id number]: Tara Zaragoza on 08/28/18 2:05 pm * Is the patient Alert and Oriented? Yes * How many steps to enter\exit or inside your home? Ramp * PCP Dr. Alcantara * [facility] [address] * Preadmission Environment Home Alone * ADLs Independent * Equipment Oxygen Power Chair or Electric Scooter Rolling Walker Wheelchair * Other Equipment [employer] - wears O2 @ HS has portable also but doesn't wear it. * List name and contact numbers for known caregivers / representatives who currently or will assist patient after discharge: Steve Mcguire - jorge/norma in law - [phone] Rafael and Laurie patel / norma in law - [phone] * Verbal permission to speak to the caregivers and representatives has been obtained from the patient. Yes * Community resources currently utilized None * Additional services required to return to the preadmission environment? No * Can the patient safely return to the preadmission environment? Yes * Has this patient been hospitalized within the prior 30 days at any hospital? No Coverage Notice Reviewer: [id number] Nelson Bradley Notice Issued Date-Time: 09/05/2018 14:32 Notice Type: IM Discharge Notice Notice Delivered To: Patient Relationship to Patient: Self Adjunct Instructor Of Women'S Studies Name: Delivery Method: HAND - Hand Delivered Breann Days: Prior Verbal Notification: Recipient Understood Notice: Yes Recipient Signature: Yes Med Rec Note Co-signed by Attending: Coverage Notice Comment: Last DP export: 09/05/18 1:36 p Patient Name: RYLEY MCGUIRE Page [id number] at 1903 All edits/amendments must be made on the electronic document DICTATION DATE: 09/05/181902 RADIO MESSAGE ROUTER: CHARISMA 09/05/18 190 RPT#: [id number] DC DATE:09/05/18 STATUS: DIS IN [facility] [address] [place] [address] END OF REPORT
[2018-09-13 14:17] LABS: FUNGUS CULTURE RESULT 1 Candida albicans (()); FUNGUS MYCOLOGY CULTURE Preliminary report (())
[2018-09-13 14:17] LABS: FUNGUS CULTURE RESULT 1 Candida albicans (()); FUNGUS MYCOLOGY CULTURE Preliminary report (())
== END 2018-09-05 18:22 | DRG 177 ==
LOC: D.ER 11:21 → D.M3 12:55 → D.EDHOLD 12:55 → D.M3 14:46
PROVIDERS: Emergency Medicine; Family Medicine; Internal Medicine Pulmonary Disease; ADMIT Internal Medicine Nephrology; ATTEND Internal Medicine Nephrology
PROC: 0W993ZZ Drainage of Right Pleural Cavity, Percutaneous Approach (ICD-10-PCS; principal; 2018-09-01)
PROC: 0B9J7ZX Drainage of Left Lower Lung Lobe, Via Natural or Artificial Opening, Diagnostic (ICD-10-PCS; 2018-09-02)
PROC: 0B9D7ZX Drainage of Right Middle Lung Lobe, Via Natural or Artificial Opening, Diagnostic (ICD-10-PCS; 2018-09-02)
DX: J15.6 Pneumonia due to other Gram-negative bacteria (principal); J96.21 Acute and chronic respiratory failure with hypoxia; J47.1 Bronchiectasis with (acute) exacerbation; J47.0 Bronchiectasis with acute lower respiratory infection; D50.9 Iron deficiency anemia, unspecified; E78.5 Hyperlipidemia, unspecified; I48.91 Unspecified atrial fibrillation; K59.00 Constipation, unspecified; D64.9 Anemia, unspecified; I11.0 Hypertensive heart disease with heart failure; I50.9 Heart failure, unspecified

== ENCOUNTER 2018-09-05 16:17 | Inpatient (IN) | payer MEDICARE, OTHER ==
[~2018-09-05] VITALS: Ht 167.6 cm; Wt 54.4 kg
[~2018-09-05 16:17] MED LIST changes: +FLUTICASONE PRO16 GM NASAL; +MIRALAX17 GM PO; +OMNICEF300 MG PO; +PROTONIX40 MG PO; +STERAPRED DS 1010 MG PO; +ZITHROMAX500 MG PO
[2018-09-05 20:00] VITALS: BP 103/55
[2018-09-05 20:09] VITALS: BP 103/55; BMI 19.4
[2018-09-06 08:00] VITALS: BP 131/66
[2018-09-06 09:48] VITALS: Ht 167.6 cm; Wt 54.4 kg
[2018-09-06 19:57] VITALS: BP 119/59
[2018-09-07 07:31] LABS: BASOPHILS 0.1 % (0-2); EOSINOPHILS 0.4 % (0-7); HEMATOCRIT 30.4 % (36.0-48.0); HEMOGLOBIN 10.1 g/dL (12-16); IMMATURE GRANULOCYTES 1.2 % (0-5); LYMPHOCYTES 12.2 % (15-50); MCH 30.4 pg (26.0-34.0); MCHC 33.2 g/dL (31.0-37.0); MCV 91.6 fL (80.0-100.0); MEAN PLATELET VOLUME 9.3 fL (7.4-10.4); MONOCYTES 17.9 % (2-11); NEUTROPHILS 68.2 % (40-80); PLATELET COUNT 416 10x3/uL (130-400); RBC 3.32 10x6/uL (4.00-5.40); RDW 15.1 % (11.5-14.5)
[2018-09-07 07:44] LABS: ANION GAP 7.9 mmol/L (8-16); CALCIUM 8.2 mg/dL (8.5-10.1); CARBON DIOXIDE 33.5 mmol/L (21.0-32.0); CREATININE - SERUM 0.8 mg/dL (0.6-1.3); POTASSIUM - SERUM 3.4 mmol/L (3.5-5.1)
[2018-09-07 08:00] VITALS: BP 162/73
[2018-09-07 08:02] LABS: WBC 8.4 10x3/uL (4.8-10.8)
[2018-09-07 21:19] VITALS: BP 138/65
[2018-09-08 08:14] VITALS: BP 141/72
[2018-09-08 20:57] VITALS: BP 122/62
[2018-09-09 06:17] LABS: BASOPHILS 0.1 % (0-2); EOSINOPHILS 1.7 % (0-7); HEMOGLOBIN 10.3 g/dL (12-16); IMMATURE GRANULOCYTES 2.6 % (0-5); LYMPHOCYTES 12.7 % (15-50); MCH 30.7 pg (26.0-34.0); MCHC 33.2 g/dL (31.0-37.0); MCV 92.5 fL (80.0-100.0); MEAN PLATELET VOLUME 9.3 fL (7.4-10.4); MONOCYTES 10.9 % (2-11); PLATELET COUNT 469 10x3/uL (130-400); RBC 3.35 10x6/uL (4.00-5.40); RDW 15.1 % (11.5-14.5); WBC 8.9 10x3/uL (4.8-10.8)
[2018-09-09 06:26] LABS: ANION GAP 8.9 mmol/L (8-16); CALCIUM 8.7 mg/dL (8.5-10.1); CARBON DIOXIDE 31.3 mmol/L (21.0-32.0); CREATININE - SERUM 0.8 mg/dL (0.6-1.3)
[2018-09-09 06:27] LABS: POTASSIUM - SERUM 4.2 mmol/L (3.5-5.1)
[2018-09-09 07:45] VITALS: BP 143/69
--- NOTE | 2018-09-09 17:01 | RHP ---
PATIENT: RYLEY COX MEDICAL RECORD: [id number] ACCOUNT: [id number] LOCATION:[facility] : [birth year] ADMISSION DATE: 09/05/18 REHABILITATION HISTORY AND PHYSICAL EXAMINATION POST ADMISSION PHYSICIAN EXAMINATION DATE OF ADMISSION: 09/05/2018 ADMITTING DIAGNOSIS: Chronic obstructive pulmonary disease induced myopathy. HISTORY OF PRESENT ILLNESS: The patient is an 82-year-old female patient admitted secondary to COPD induced myopathy. She presented to the Emergency Room on 08/28/2018 by EMS with increasing generalized weakness, shortness of breath, dyspnea on exertion, productive cough, headache, body aches, fevers and chills. She apparently had been feeling unwell since the evening prior to this, she was very weak. She was short of breath more than normal, chest congestion and fever. She has got a history of hypertension, hyperlipidemia, COPD, AFib. She had diminished breath sounds bilaterally. Her temperature was 103.3. She was hypoxic with sats of 88%. X-ray showed bilateral patchy airspace opacities concerned for bibasilar pneumonia. She has got a history of chronic bronchiectasis with exertion. 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 She was treated with ibuprofen, GI and DVT prophylaxis, Zithromax, Rocephin updrafts and telemetry. She improved with this treatment. She had a bronchoscopy on 09/02/2018 with bronchoalveolar lavage. Bronchoscopy specimens were sent to the lab for cultures, AFB, Gram stain and cytology. She had an elevated BNP also. She was continued on antibiotics. She was continued on updrafts, steroids, diuresis, incentive spirometry. Overall impression was symptomatically that any of her chest pain or other complaints were noncardiac. She has maintained a sinus rhythm. She does not have congestive heart failure at this time. She is very fatigued and has limited flexion and extension of her lower extremities. She has got proximal muscle strength that is decreased. She is mod-to-max assist for ADLs and mod-to-max assist for stand and bed to chair. She is highly motivated and has good intent to regain her strength to return back home at her prior level of functioning or better. She wears O2 at night at 2 liters. She was very active, driving exercising and taking dance lessons prior to this. Barriers to her discharge is that she lives alone. She does not have any family there nearby. She has increasing O2 needs. She is a fall risk and definitely has dyspnea on exertion. COMORBIDITIES: In this patient include [id number]-yz-ctmiehb respiratory failure, COPD, pneumonia, hypertension, hyperlipidemia, atrial fib, constipation, chronic hypoxic respiratory failure, pulmonary edema, hypokalemia, anemia, bilateral pleural effusions, did get dizzy, back pain, weakness, fatigue and dyspnea on exertion. PAST MEDICAL HISTORY: Significant for atrial fib, COPD, hypertension and hyperlipidemia. PAST SURGICAL HISTORY: None. ALLERGIES: CODEINE AND ACETAMINOPHEN. CURRENT MEDICATIONS: Include Atrovent updrafts. She is on Pulmicort 0.5 mg b.i.d., vitamin B6 100 mg daily, prednisone 10 mg daily, polyethylene glycol 17 grams in 8 ounces of water daily, Protonix 40 mg daily, losartan 50 mg daily, HISTORY AND PHYSICAL [id number] COX,RYLEY Mucinex D 1 tab b.i.d., glucosamine 1000 mg daily, B12 1000 mcg daily, vitamin D 1000 units daily, atorvastatin 10 mg daily, Xopenex updrafts as needed. She is on Flonase nasal spray daily, omega 3 one cap b.i.d., Multaq 400 mg b.i.d., Omnicef 300 mg b.i.d., Os-Hi with D b.i.d., she is on Eliquis 5 mg b.i.d. HABITS: No current alcohol or tobacco use. FAMILY HISTORY: Noncontributory. SOCIAL HISTORY: The patient hopes to return back home and get back to her prior level of functioning. REVIEW OF SYSTEMS: GENERAL: Does complain of weakness and fatigue. HEENT: Does complain of cold, cough, or congestion. CARDIOVASCULAR: Denies chest pain. PHYSICAL EXAMINATION: VITAL SIGNS: Stable, afebrile. GENERAL: A thin female, in no acute distress, alert upon exam. HEENT: Normocephalic and atraumatic. Mucosa moist. NECK: Supple. No lymphadenopathy. LUNGS: Clear in upper pina. HEART: Regular rate and rhythm at this time. ABDOMEN: Benign. EXTREMITIES: No clubbing, cyanosis or edema. NEUROLOGIC: She does have noted weakness. LABORATORY DATA: Her white count is 15.7, H&H of 10 and 31 and platelet count was 363. Her admit chemistry shows sodium 139, potassium 3.4, BUN and creatinine of 19 and 1.1 and blood sugar is noted to be 137. Her UA upon admission to the hospital did show trace leukocyte esterase, but otherwise was normal. ASSESSMENT: This is an 82-year-old female patient admitted to rehab with a working diagnosis of chronic obstructive pulmonary disease induced myopathy. The patient has potential to make improvement. We instituted the following multidisciplinary therapies including, but not limited to physical, occupational, respiratory, speech, nutritional services, prosthetics and orthotics. Given her complex medical condition and risks for more complications, rehabilitation services cannot be provided at a low level of care such as skilled nurse facility. PLAN: 1. Admit to [facility] for intensive inpatient therapy to include the following disciplines: A. Physical therapy to improve gait, all transfer skills and bed mobility to a modified independent level. B. Occupational therapy to a modified independent level. C. Case management to assist with discharge planning and placement options. D. Nutrition to assist with nutritional needs. E. Rehabilitation nursing to assist in monitoring the patient's underlying medical conditions and to assist with any type of bowel or bladder management. 2. The patient's current medication and medical care will be continued. 3. The patient will be placed on standard fall precautions. HISTORY AND PHYSICAL [id number] RYLEY COX 4. The patient's estimated length of stay is approximately 7-10 days. 5. Discuss patient during care team staff meeting this week. TRANSINT:[id number] Voice Confirmation ID: [id number] DOCUMENT ID: [id number] REMBERTO notes whether there has been none or any medical/functional change since admission: - No change since prescreen. REMBERTO attests patient continues to be appropriate for IRF: - Continues to be appropriate. KWABENA ARTEAGA MD at 1701 CC: [id number] DICTATION DATE: 09/06/18 0836 FURNACE AND WASH EQUIPMENT OPERATOR: 09/06/18 0945 ADM IN [facility] [address] [place] [id number]
[2018-09-09 19:30] VITALS: BP 127/64
[2018-09-10 14:19] VITALS: BP 109/61
[2018-09-10 19:29] VITALS: BP 126/66
[2018-09-11 08:12] VITALS: BP 137/68
[2018-09-11 19:25] VITALS: BP 127/59
[2018-09-12 07:19] LABS: HEMATOCRIT 31.3 % (36.0-48.0); HEMOGLOBIN 10.1 g/dL (12-16); MCH 30.5 pg (26.0-34.0); MCHC 32.3 g/dL (31.0-37.0); MCV 94.6 fL (80.0-100.0); MEAN PLATELET VOLUME 8.7 fL (7.4-10.4); PLATELET COUNT 434 10x3/uL (130-400); RBC 3.31 10x6/uL (4.00-5.40); RDW 15.4 % (11.5-14.5); WBC 8.3 10x3/uL (4.8-10.8)
[2018-09-12 07:40] LABS: ANION GAP 7.3 mmol/L (8-16); CALCIUM 8.4 mg/dL (8.5-10.1); CARBON DIOXIDE 33.9 mmol/L (21.0-32.0); CREATININE - SERUM 0.9 mg/dL (0.6-1.3); POTASSIUM - SERUM 4.2 mmol/L (3.5-5.1)
[2018-09-12 08:16] VITALS: BP 143/63
[2018-09-12 09:50] LABS: EOSINOPHILS 1 % (0-7); LYMPHOCYTES 10 % (15-50); MONOCYTES 12 % (2-11); NEUTROPHILS 74 % (40-80)
[2018-09-12 09:51] LABS: PLATELET ESTIMATE NORMAL; PLATELET MORPHOLOGY PLT CLUMPS PRESENT
[2018-09-12 19:40] VITALS: BP 117/57
[2018-09-13 08:16] VITALS: BP 130/68
[2018-09-13] MEDS ORDERED: MIRALAX17 GM PO (13:28)
[2018-09-13] MEDS ORDERED: PREDNISONE10 MG PO (13:29)
== END 2018-09-13 13:56 | disposition home or self-care (01) | DRG 91 ==
LOC: D.REHAB 16:17
PROVIDERS: ADMIT Emergency Medicine; ATTEND Emergency Medicine
DX: G72.89 Other specified myopathies (principal); J18.9 Pneumonia, unspecified organism; J96.21 Acute and chronic respiratory failure with hypoxia; J90 Pleural effusion, not elsewhere classified; J81.1 Chronic pulmonary edema; J44.1 Chronic obstructive pulmonary disease with (acute) exacerbation; E78.5 Hyperlipidemia, unspecified; I10 Essential (primary) hypertension; I48.91 Unspecified atrial fibrillation; D64.9 Anemia, unspecified; K59.00 Constipation, unspecified; E87.6 Hypokalemia; R53.1 Weakness; R53.83 Other fatigue

== ENCOUNTER 2019-06-08 15:07 | Emergency (ER) | payer MEDICARE, OTHER ==
[~2019-06-08] VITALS: Ht 167.6 cm; Wt 54.5 kg
[~2019-06-08 15:07] MED LIST changes: +PREDNISONE10 MG PO
[2019-06-08 15:33] VITALS: Ht 167.6 cm; Wt 54.5 kg
[2019-06-08] MEDS ORDERED: ZYLOPRIM300 MG PO (15:50)
[2019-06-08] MEDS ORDERED: CYCLOBENZAPRINE10 MG PO (18:52)
[2019-06-08] MEDS ORDERED: ULTRAM50 MG PO (18:52)
[2019-06-08 19:13] VITALS: BP 165/76
== END 2019-06-08 19:13 | disposition home or self-care (01) ==
LOC: D.ER 15:07
DX: M54.9 Dorsalgia, unspecified (principal); S16.1XXA Strain of muscle, fascia and tendon at neck level, initial encounter; V89.2XXA Person injured in unspecified motor-vehicle accident, traffic, initial encounter; Y93.9 Activity, unspecified; Y92.9 Unspecified place or not applicable; J44.9 Chronic obstructive pulmonary disease, unspecified; I48.91 Unspecified atrial fibrillation; M62.838 Other muscle spasm; R51 Headache

== ENCOUNTER → 2020-01-18 10:03 | Outpatient (CLI) | payer MEDICARE, OTHER ==
[2019-06-08 15:33] VITALS: BMI 19.4
[~2020-01-18 10:03] MED LIST changes: +CYCLOBENZAPRINE10 MG PO; +ULTRAM50 MG PO; +ZYLOPRIM300 MG PO
== END | disposition home or self-care (01) ==
LOC: D.MRI 10:03
PROVIDERS: ATTEND Neurological Surgery
DX: M54.16 Radiculopathy, lumbar region (principal)

== ENCOUNTER 2020-10-11 14:30 | Observation (INO) | payer MEDICARE, OTHER ==
[~2020-10-11] VITALS: Ht 167.6 cm; Wt 47.7 kg
[~2020-10-11 14:30] MED LIST changes: +VITAMIN D325 MC1 PO; -VITAMIN D3400 UNI1 PO
[2020-10-11 15:55] LABS: BASOPHILS 0.1 % (0-2); EOSINOPHILS 4.6 % (0-7); HEMATOCRIT 35.8 % (36.0-48.0); HEMOGLOBIN 11.6 g/dL (12-16); IMMATURE GRANULOCYTES 0.1 % (0-5); LYMPHOCYTE ABS# 0.82 10x3/uL (1.18-3.74); LYMPHOCYTES 11.2 % (15-50); MCH 30.7 pg (26.0-34.0); MCHC 32.4 g/dL (31.0-37.0); MCV 94.7 fL (80.0-100.0); MEAN PLATELET VOLUME 9.2 fL (7.4-10.4); MONOCYTES 11.4 % (2-11); NEUTROPHIL ABS# 5.33 10x3/uL (1.56-6.13); NEUTROPHILS 72.6 % (40-80); PLATELET COUNT 355 10x3/uL (130-400); RBC 3.78 10x6/uL (4.00-5.40); RDW 14.5 % (11.5-14.5); WBC 7.4 10x3/uL (4.8-10.8)
[2020-10-11 15:56] LABS: CALC OSMOLALITY 279 mosm/kg (275-300); CALCIUM 9.6 mg/dL (8.5-10.1); CARBON DIOXIDE 31.1 mmol/L (21.0-32.0); CHLORIDE - SERUM 101 mmol/L (98-107); CREATININE - SERUM 0.9 mg/dL (0.6-1.3); GLUCOSE 100 mg/dL (74-106); POTASSIUM - SERUM 3.4 mmol/L (3.5-5.1); SODIUM 140 mmol/L (136-145); UREA NITROGEN 16 mg/dL (7-18); eGFR NON AFRICAN AMERICAN 63 mL/min (90-120)
[2020-10-11 15:59] LABS: APTT 39.1 SECONDS (22.8-39.4); INR 1.42 (0.85-1.17)
[2020-10-11 16:14] LABS: ALBUMIN 3.3 g/dL (3.4-5.0); ALKALINE PHOSPHATASE 86 U/L (30-120); ALT (SGPT) 18 U/L (10-68); BILIRUBIN - TOTAL 0.33 mg/dL (0.2-1.3); CKMB 1.5 U/L (0.0-3.6); CREATINE KINASE 60 UL (21-215); PROTEIN - SERUM 7.6 g/dL (6.4-8.2)
[2020-10-11 16:17] LABS: TROPONIN-I < 0.017 ng/mL (0.000-0.060)
[2020-10-11 16:19] LABS: BILIRUBIN NEGATIVE (NEGATIVE); KETONE NEGATIVE (NEGATIVE); NITRITE NEGATIVE (NEGATIVE); UROBILINOGEN NORMAL mg/dL (< 2)
[2020-10-11 16:23] LABS: BACTERIA FEW HPF (NONE SEEN); SQUAMOUS EPITHELIAL 0-5 HPF (0-4)
--- NOTE | 2020-10-11 19:44 | NUR ---
REPORT RECEIVED FROM WILL IN ER. AWAITING PT'S ARRIVAL TO ROOM 3650.
--- NOTE | 2020-10-11 20:00 | NUR ---
PT TO ROOM 2130 VIA WHEELCHAIR ACCOMPANIED BY HOSPITAL STAFF.
[2020-10-11 20:54] VITALS: BP 138/78; BP 165/97
[2020-10-11 23:51] VITALS: BP 138/78; Ht 167.6 cm; Wt 47.7 kg
[2020-10-12] MEDS ORDERED: FUROSEMIDE20 MG PO (00:39)
[2020-10-12] MEDS ORDERED: XOPENEX 1.1.25 MG/3 UPD ×2 (00:49→00:51)
[2020-10-12] MEDS ORDERED: CYMBALTA20 MG PO (00:53)
[2020-10-12] MEDS ORDERED: CITRACAL + D E1 EACH PO (01:01)
[2020-10-12] MEDS ORDERED: MAGNESIUM OXID250 MG PO (01:02)
[2020-10-12] MEDS ORDERED: KRILL OIL 1,001 EAC1 PO (01:03)
[2020-10-12] MEDS ORDERED: VIVISCAL PO (01:05)
[2020-10-12] MEDS ORDERED: [UNRECOGNIZED DRUG - OTHER] PO (01:06)
[2020-10-12] MEDS ORDERED: COLON HEALTH PO (01:07)
[2020-10-12 01:56] VITALS: BP 114/61
[2020-10-12 06:43] VITALS: BP 120/66
[2020-10-12 07:41] LABS: BASOPHILS 0.2 % (0-2); HEMATOCRIT 28.9 % (36.0-48.0); HEMOGLOBIN 9.3 g/dL (12-16); IMMATURE GRANULOCYTES 0.3 % (0-5); LYMPHOCYTE ABS# 0.76 10x3/uL (1.18-3.74); LYMPHOCYTES 12.3 % (15-50); MCHC 32.2 g/dL (31.0-37.0); MCV 93.2 fL (80.0-100.0); MEAN PLATELET VOLUME 9.3 fL (7.4-10.4); MONOCYTES 13.5 % (2-11); NEUTROPHIL ABS# 4.26 10x3/uL (1.56-6.13); NEUTROPHILS 68.7 % (40-80); PLATELET COUNT 323 10x3/uL (130-400); RDW 14.2 % (11.5-14.5); WBC 6.2 10x3/uL (4.8-10.8)
[2020-10-12 08:10] LABS: ALBUMIN 2.3 g/dL (3.4-5.0); ALKALINE PHOSPHATASE 59 U/L (30-120); ALT (SGPT) 12 U/L (10-68); BILIRUBIN - TOTAL 0.33 mg/dL (0.2-1.3); CALC OSMOLALITY 279 mosm/kg (275-300); CALCIUM 8.5 mg/dL (8.5-10.1); CARBON DIOXIDE 29.2 mmol/L (21.0-32.0); CHLORIDE - SERUM 106 mmol/L (98-107); CKMB 1.3 U/L (0.0-3.6); CREATINE KINASE 53 UL (21-215); CREATININE - SERUM 0.8 mg/dL (0.6-1.3); GLUCOSE 92 mg/dL (74-106); MAGNESIUM - SERUM 1.7 mg/dL (1.8-2.4); PHOSPHOROUS 3.3 mg/dL (2.5-4.9); POTASSIUM - SERUM 3.3 mmol/L (3.5-5.1); PROTEIN - SERUM 5.7 g/dL (6.4-8.2); SODIUM 141 mmol/L (136-145); TROPONIN-I < 0.017 ng/mL (0.000-0.060); UREA NITROGEN 10 mg/dL (7-18); eGFR NON AFRICAN AMERICAN 72 mL/min (90-120)
[2020-10-12 09:00] VITALS: BP 125/73
--- NOTE | 2020-10-12 09:32 | NUR ---
PATIENT AAOX4 HIGH FOWLERS IN BED, NO S/S OF DISTRESS, RESP EVEN AND NON LABORED, NO SCHEDULED MEDICATIONS AT THIS TIME, POTASSIUM TREATED DUE TO LOW RANGE OF 3.4, PATIENT IS TO WALK AND SEE HOW SHE FEELS PER DR WASHINGTON AND THEN WE CAN DISCUSS DISCHARGE, NO FURTHER NEEDS AT THIS TIME, SALONI OLMSTEAD
[2020-10-12] MEDS ORDERED: FLAGYL500 MG PO (12:06)
[2020-10-12] MEDS ORDERED: LEVOFLOXACIN500 MG PO (12:06)
--- NOTE | 2020-10-12 12:06 | NUR ---
PATIENT HAS SCD'S IN PLACE AND PATIENT EDUCATED ON IMPORTANCE OF THEM
[2020-10-12 12:35] VITALS: BP 107/52
== END 2020-10-12 15:30 | disposition home or self-care (01) ==
LOC: D.ER 14:30 → D.M2 18:44 → OBSVTIME 18:44 → D.M2 10-12 15:30
PROVIDERS: Family Medicine; ADMIT Emergency Medicine; ATTEND Emergency Medicine
DX: R42 Dizziness and giddiness (principal); I95.1 Orthostatic hypotension; J44.9 Chronic obstructive pulmonary disease, unspecified; T50.B95A Adverse effect of other viral vaccines, initial encounter; D64.9 Anemia, unspecified; Z79.01 Long term (current) use of anticoagulants; M19.90 Unspecified osteoarthritis, unspecified site